=== PATIENT | female | born 1950 | race Two or more races ===

== ENCOUNTER 2022-01-10 15:00 | Outpatient (CLI) | payer MEDICARE, BC ==
[2022-01-10 16:33] LABS: #Eosinphils 0.1 10x3/uL (0.0-0.5); #Monocytes 0.4 10x3/uL (0.0-1.1); #Neutrophils 3.9 10x3/uL (1.5-8.4); %Basophils 0.5 % (0.0-2.0); %Eosinophils 1.1 % (0.0-6.0); %Lymphocytes 30.2 % (18.0-47.0); %Monocytes 6.4 % (0.0-10.0); %Neutrophils 61.8 % (40.0-75.0); Hemoglobin 13.1 g/dL (12.0-15.5); Mean Corpuscular HGB CONC 33.6 g/dL (32.0-36.0); Mean Corpuscular Volume 95.4 fl (81.6-98.3); Mean Platelet Volume 10.4 fl (7.4-10.4); Platelet Count 341 10x3/uL (150-450); Red Blood Cell (RBC) Count 4.09 10x6/uL (3.90-5.03); White Blood Cell (WBC) Count 6.3 10x3/uL (3.5-10.5)
[2022-01-10 16:43] LABS: Prothrombin Time 10.9 sec (9.5-12.1)
[2022-01-10 16:49] LABS: Anion Gap 15 mmol/L (10-20); BUN (Urea Nitrogen) 21 mg/dL (9.8-20.1); Calc. Creatinine Clearance 0 mL/min (70-130); Calcium 9.7 mg/dL (7.8-10.44); Carbon Dioxide 26 mmol/L (23-31); Chloride 100 mmol/L (98-107); Estimated GFR 75; Glucose 102 mg/dL (83-110); Potassium 4.7 mmol/L (3.5-5.1); Sodium 136 mmol/L (136-145)
== END 2022-01-10 15:01 | disposition home or self-care (01) ==
LOC: LABBT 15:00
PROVIDERS: ATTEND Orthopaedic Surgery
DX: Z01.818 Encounter for other preprocedural examination (principal); M16.11 Unilateral primary osteoarthritis, right hip; Z20.822 Contact with and (suspected) exposure to COVID-19
CPT/HCPCS: 80048; 85025; 85610; 87081; 87811; 93005; 93010

== ENCOUNTER 2022-01-15 06:44 | Inpatient (IN) | payer MEDICARE, BC ==
[2022-01-11 14:54] VITALS: BMI 38.7
[2022-01-15] MEDS ORDERED: Sodium Chloride 0.9% 100 ML ONE ×2 (07:23→08:58)
[2022-01-15] MEDS ORDERED: Tranexamic Acid 1,000 MG/10 ML VIAL ONE (07:23)
[2022-01-15] MEDS ORDERED: Vancomycin (BATCH) 1.5 GRAM/300 ML BAG ONE (07:23)
[2022-01-15] MEDS ORDERED: Fentanyl 100 MCG/2 ML VIAL ONE (08:28)
[2022-01-15] MEDS ORDERED: Midazolam HCl 2 mg/2 ml Vial ONE (08:28)
[2022-01-15] MEDS ORDERED: Ropivacaine 0.5% HCl/PF (150 MG/30 ML VIAL) ONE (08:29)
[2022-01-15] MEDS ORDERED: Bupivacaine PF 0.5% 30 ML VIAL ONE (08:40)
[2022-01-15] MEDS ORDERED: Propofol 1,000 MG/100 ML VIAL IV ONE (08:53)
[2022-01-15] MEDS ORDERED: Fentanyl 100 MCG/2 ML VIAL SLOW IVP PRN ×2 (08:55)
[2022-01-15] MEDS ORDERED: Ondansetron PF 4 MG/2 ML Vial IVP PRN (08:55)
[2022-01-15] MEDS ORDERED: diphenhydrAMINE 25 MG CAP PO PRN (08:55)
[2022-01-15] MEDS ORDERED: Acetaminophen 325 MG TAB PO PRN (08:55)
[2022-01-15] MEDS ORDERED: Promethazine HCl 25 MG/ML VIAL IM PRN (08:55)
[2022-01-15] MEDS ORDERED: Zolpidem Tartrate 5 MG TAB PO PRN (08:55)
[2022-01-15] MEDS ORDERED: Methocarbamol 500 MG TAB PO PRN (08:57)
[2022-01-15] MEDS ORDERED: CEFAZOLIN 2 GM VIAL ONE (08:58)
[2022-01-15] MEDS ORDERED: Non-Formulary Item 1 EACH (Tizanidine Hcl [Tizanidine Hcl] 4 MG Capsule) PO SCH (09:00)
[2022-01-15] MEDS ORDERED: Hydrochlorothiazide 25 MG TAB PO SCH (09:00)
[2022-01-15] MEDS ORDERED: Phenylephrine 10 MG/ML VIAL ONE ×2 (10:24)
[2022-01-15] MEDS: Ferrous Gluconate 324 MG TAB PO SCH ×2 (12:44→21:43)
[2022-01-15] MEDS: Levothyroxine 150 MCG TAB PO SCH (12:44)
[2022-01-15] MEDS: Aspirin 81 mg Enteric Coated Tablet PO SCH ×2 (12:44→21:39)
[2022-01-15] MEDS: Lisinopril 10 MG TAB PO SCH ×2 (12:44→21:39)
[2022-01-15] MEDS: Oxybutynin ER 5 MG TAB PO SCH ×2 (12:45→21:42)
[2022-01-15] MEDS: Multivitamin W/ Minerals 1 TAB PO SCH (12:45)
[2022-01-15] MEDS: Senokot S 8.6-50 MG TAB PO SCH ×2 (12:46→21:43)
[2022-01-15] MEDS: oxyCODONE/Acetaminophen 5 mg/325 mg Tablet PO PRN ×3 (13:36→21:38)
[2022-01-15] MEDS: CEFAZOLIN 2 GM in Sodium Chloride 0.9% 100 ML IVPB SCH (16:45)
[2022-01-15] MEDS: Sodium Chloride 0.9% 1,000 ML IV SCH ×2 (17:10→19:47)
[2022-01-15] MEDS: Atorvastatin Calcium 10 MG TAB PO SCH (21:42)
[2022-01-15] MEDS: tiZANidine HCl 4 MG TAB PO SCH (21:43)
[2022-01-16] MEDS: CEFAZOLIN 2 GM in Sodium Chloride 0.9% 100 ML IVPB SCH (01:14)
[2022-01-16] MEDS: oxyCODONE/Acetaminophen 5 mg/325 mg Tablet PO PRN ×6 (01:33→21:35)
[2022-01-16 05:56] LABS: Hemoglobin 11.7 g/dL (12.0-16.0); Mean Corpuscular HGB CONC 32.4 g/dL (32.0-36.0); Mean Corpuscular Hemoglobin 32.3 pg (27.0-31.0); Mean Corpuscular Volume 99.8 fL (78.0-98.0); Mean Platelet Volume 7.8 fL (7.4-10.4); Platelet Count 279 thou/uL (130-400); RBC Distribution Width 11.6 % (11.5-14.5); Red Blood Cell (RBC) Count 3.62 mill/uL (4.20-5.40); White Blood Cell (WBC) Count 8.2 thou/uL (4.8-10.8)
[2022-01-16] MEDS: Sodium Chloride 0.9% 1,000 ML IV SCH ×2 (07:02→15:12)
[2022-01-16] MEDS: Multivitamin W/ Minerals 1 TAB PO SCH (08:46)
[2022-01-16] MEDS: Ferrous Gluconate 324 MG TAB PO SCH ×2 (08:46→21:35)
[2022-01-16] MEDS: Senokot S 8.6-50 MG TAB PO SCH ×2 (08:46→21:33)
[2022-01-16] MEDS: Cephalexin 250 MG CAP PO SCH ×2 (08:47→21:32)
[2022-01-16] MEDS: Oxybutynin ER 5 MG TAB PO SCH ×2 (08:48→21:34)
[2022-01-16] MEDS: Aspirin 81 mg Enteric Coated Tablet PO SCH ×2 (08:48→21:32)
[2022-01-16] MEDS: Lisinopril 10 MG TAB PO SCH ×2 (08:50→21:33)
[2022-01-16] MEDS: Levothyroxine 150 MCG TAB PO SCH (08:58)
[2022-01-16] MEDS ORDERED: Hydrochlorothiazide 25 MG TAB PO SCH (09:00)
[2022-01-16] MEDS: tiZANidine HCl 4 MG TAB PO SCH ×2 (15:12→21:34)
[2022-01-16] MEDS: Atorvastatin Calcium 10 MG TAB PO SCH (21:30)
[2022-01-17] MEDS: Sodium Chloride 0.9% 1,000 ML IV SCH (02:30)
[2022-01-17] MEDS: Ketorolac Tromethamine 30 MG/ML VIAL IVP PRN ×2 (02:37→09:04)
[2022-01-17] MEDS ORDERED: Lidocaine 5% Patch TD SCH (09:00)
[2022-01-17] MEDS ORDERED: Ketorolac Tromethamine 10 MG TAB PO SCH (09:00)
[2022-01-17] MEDS: Aspirin 81 mg Enteric Coated Tablet PO SCH (09:02)
[2022-01-17] MEDS: Ferrous Gluconate 324 MG TAB PO SCH (09:02)
[2022-01-17] MEDS: Multivitamin W/ Minerals 1 TAB PO SCH (09:03)
[2022-01-17] MEDS: Cephalexin 250 MG CAP PO SCH (09:03)
[2022-01-17] MEDS: Oxybutynin ER 5 MG TAB PO SCH (09:03)
[2022-01-17] MEDS: Senokot S 8.6-50 MG TAB PO SCH (09:03)
[2022-01-17] MEDS: Levothyroxine 150 MCG TAB PO SCH (09:04)
[2022-01-17] MEDS: tiZANidine HCl 4 MG TAB PO SCH (09:09)
[2022-01-17] MEDS: Lisinopril 10 MG TAB PO SCH (09:10)
[2022-01-17 16:34] VITALS: BP 117/52; TEMP 98.1
[2022-01-17] MEDS ORDERED: Transdermal Patch Removal TOP SCH (21:00)
== END 2022-01-17 17:49 | DRG 470 ==
LOC: SDC 06:44 → SURG B 08:55 → SDC 12:48 → SURG B 12:48 → SDC 12:56 → SURG B 12:57 → OBSVTOIN 01-16 07:39
PROVIDERS: ADMIT Orthopaedic Surgery; ATTEND Orthopaedic Surgery
PROC: 0SR902A Replacement of Right Hip Joint with Metal on Polyethylene Synthetic Substitute, Uncemented, Open Approach (ICD-10-PCS; principal; 2022-01-15)
PROC: 0KQQ0ZZ Repair Right Upper Leg Muscle, Open Approach (ICD-10-PCS; 2022-01-15)
DX: M16.11 Unilateral primary osteoarthritis, right hip (principal); M62.151 Other rupture of muscle (nontraumatic), right thigh
CPT/HCPCS: 36415; 85027; 96365; 96375; 96376; C1776; G0378; J0690; J1885; J2250; J2370; J2704; J2795; J3010; J3370; J3490; J7050; S0020